=== PATIENT | female | born 1975 | race Caucasian/White ===

== ENCOUNTER 2021-03-17 11:45 | Emergency (ER) | payer MEDICAID ==
[~2021-03-17] VITALS: Ht 154.9 cm; Wt 64.9 kg
[2021-03-17 11:50] VITALS: BP 116/76
--- NOTE | 2021-03-17 12:00 | NUR ---
45 Y/O F BIB FRIEND FROM HOME, C/O EYE AND FACIAL SWELLING WITH HIVES, PT STATES SHE ATE CONGOLESE FOOD YESTERDAY THAT CAUSED HER TO HAVE HIVES, FACIAL EDEMA AND THROAT FELT IF IT WAS CLOSING. UNSURE OF WHAT MIGHT HAVE CAUSED ALLERGY. DENIES ANY PAIN. STATES "VERY ITCHY" MED: CITRACIN, BENADRYL 1000 TODAY ALLERGY: PENICILLIN (HIVES, EDEMA), UNKNOWN FOR FOOD PMH: ANEMIA
[2021-03-17] MEDS ORDERED: methylPREDNISolone SS 125 MG/2 ML VIAL ONE (12:11)
[2021-03-17] MEDS ORDERED: WATER STERILE 10 ML MC ONE (12:11)
[2021-03-17] MEDS: NACL 0.9% 1,000 ML IV ONE (12:27)
[2021-03-17] MEDS: methylPREDNISolone SS 125 MG in WATER STERILE 2 ML IV ONE (12:27)
[2021-03-17] MEDS: FAMOTIDINE 20 MG/2 ML VIAL IVP ONE (12:28)
[2021-03-17] MEDS: diphenhydrAMINE 50 MG/ML VIAL IVP ONE (12:28)
[2021-03-17] MEDS ORDERED: EPIN1KIT31 IM (12:54)
[2021-03-17] MEDS ORDERED: PRED20TA5 PO (12:54)
[2021-03-17 13:35] VITALS: BP 116/76
--- NOTE | 2021-03-17 13:35 | NUR ---
Patient discharged with v/s stable. Written and verbal after care instructions given and explained. Patient alert, oriented and verbalized understanding of instructions. Ambulatory with steady gait. All questions addressed prior to discharge. ID band removed. Patient advised to follow up with PMD. Rx of EPIPEN AND PREDNISONE given. Patient educated on indication of medication including possible reaction and side effects. Opportunity to ask questions provided and answered.
== END 2021-03-17 13:35 | disposition home or self-care (01) ==
LOC: MED 11:45
DX: T78.1XXA Other adverse food reactions, not elsewhere classified, initial encounter (principal); Z88.0 Allergy status to penicillin; X58.XXXA Exposure to other specified factors, initial encounter
CPT/HCPCS: 96361; 96374; 96375; 99291; J1200; J2930; J3490; J7030

== ENCOUNTER 2021-07-26 11:50 | Emergency (ER) | payer MEDICAID ==
[~2021-07-26] VITALS: Ht 152.4 cm; Wt 67.1 kg
[~2021-07-26 11:50] MED LIST: EPIN1KIT31 IM; PRED20TA5 PO
[2021-07-26 11:57] VITALS: BP 121/69
[2021-07-26] MEDS ORDERED: ROBAC PO (12:43)
[2021-07-26] MEDS ORDERED: AZIT250T4 PO (12:43)
--- NOTE | 2021-07-26 12:55 | NUR ---
NO NURSING INTERVENTIONS PERFORMED
--- NOTE | 2021-07-26 12:57 | NUR ---
Patient discharged with v/s stable. Written and verbal after care instructions given and explained. Patient alert, oriented and verbalized understanding of instructions. Ambulatory with steady gait. All questions addressed prior to discharge. ID band removed. Patient advised to follow up with PMD. Rx of Azithromycin, Guaifenesin-Codeine Syrup given. Patient educated on indication of medication including possible reaction and side effects. Opportunity to ask questions provided and answered.
== END 2021-07-26 12:57 | disposition home or self-care (01) ==
LOC: MED 11:50
DX: H66.92 Otitis media, unspecified, left ear (principal); J20.9 Acute bronchitis, unspecified; Z88.0 Allergy status to penicillin; Z79.899 Other long term (current) drug therapy
CPT/HCPCS: 71045; 93005; 99283

== ENCOUNTER 2022-02-25 17:19 | Emergency (ER) | payer MEDICAID ==
[~2022-02-25] VITALS: Ht 152.4 cm; Wt 68.5 kg
[~2022-02-25 17:19] MED LIST changes: +AZIT250T4 PO; +ROBAC PO
[2022-02-25 17:43] VITALS: BP 128/73
--- NOTE | 2022-02-25 18:05 | NUR ---
AMBULATED TO BED 7
--- NOTE | 2022-02-25 18:34 | NUR ---
46YO FEMALE PT C/O GENERALIZED WEAKNESS X7DAYS. PT REPORTS DIZZINESS , CHILLS, 7/10 HEADACHE W/ OCCASIONAL CHEST PALPITATIONS XLASTNIGHT . PT HAS HX OF ANEMIA AND HAS RX IRON, DENIES BEING COMPLIANT. DENIES N/V/D, NUMBING , LOSS OF SENSATION OR FEVER. PT AAOX4, RESPIRATIONS EVEN AND UNLABORED. PT ON [employer], BED AT LOWEST POSITION, BED RAIL UP X1. UKRAINIAN SPEAKING HX: ANEMIA ALLERGIES: PENICILLIN
--- NOTE | 2022-02-25 19:18 | NUR ---
REPORT GIVEN TO GEORGE MURILLO. ALL QUESTIONS ANSWERED. TRANSFER OF CARE AT THIS TIME
[2022-02-25 20:25] LABS: BASOPHILS % (AUTO) 0.1 % (0.0-2.0); EOSINOPHILS # (AUTO) 0.1 K/uL (0-0.4); EOSINOPHILS % (AUTO) 1.1 % (0.0-4.0); HEMOGLOBIN 11.9 g/dL (12.0-16.0); LYMPHOCYTES # (AUTO) 1.2 K/uL (2.5-16.5); LYMPHOCYTES % (AUTO) 12.2 % (20.5-51.1); MEAN CORPUSCULAR HEMOGLOBIN 27 pg (27-31); MEAN CORPUSCULAR HGB CONC 33 g/dL (33-37); MEAN CORPUSCULAR VOLUME 81.3 fL (80-94); MONOCYTES # (AUTO) 0.6 K/uL (0.8-1.0); MONOCYTES % (AUTO) 6.3 % (1.7-9.3); NEUTROPHILS # (AUTO) 7.9 K/uL (1.8-7.7); NEUTROPHILS % (AUTO) 80.3 % (42.2-75.2); PLATELET COUNT (AUTO) 300 K/uL (140-450); RED BLOOD CELL COUNT(AUTO) 4.43 MIL/uL (4.20-5.40); RED CELL DISTRIBUTION WIDTH 13.9 % (11.6-13.7); WHITE BLOOD COUNT (AUTO) 9.8 K/uL (4.8-10.8)
[2022-02-25 20:53] LABS: ALBUMIN 3.3 g/dL (3.4-5.0); ANION GAP 14.4 (8-16); ASPARTATE AMINOTRANSFERASE 15 U/L (15-37); CARBON DIOXIDE 26.2 mmol/L (21-32); CHLORIDE 103 mmol/L (98-107); CREATININE 0.7 mg/dL (0.6-1.3); GFR ARICAN-AMERICAN 116 mL/min (>90); GLUCOSE 141 mg/dL (74-106); POTASSIUM 3.6 mmol/L (3.5-5.1); SODIUM SERUM 140 mmol/L (136-145); THYROID STIMULATING HORMONE 0.76 uIU/mL (0.34-3.74); TOTAL BILIRUBIN 0.1 mg/dL (0.0-1.0); UREA NITROGEN, BLOOD 17 mg/dL (7-18)
--- NOTE | 2022-02-25 20:57 | NUR ---
EKG DONE AT BEDSIDE
--- NOTE | 2022-02-25 20:58 | NUR ---
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 HOB ELEVATED. RESP EVEN AND UNLABORED.
[2022-02-25] MEDS: ACETAMINOPHEN 325 MG TAB PO ONE (21:05)
--- NOTE | 2022-02-25 22:06 | NUR ---
46YR OLD FEMALE C/O BARROS DIZZY GEN WEAKNESS X1WEEK. 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 DENIES CP AND SOB. STATES SHE HAS BEEN HAVING PAPLPATIONS X1 WEEK. RESP EVEN AND UNLABORED. NO DISTRESS NOTED. HOB ELEVATED. BED AT LOWEST LEVEL. PT IS [place] SPEAKING PCN ANEMIA
[2022-02-25 22:19] VITALS: BP 120/74
--- NOTE | 2022-02-25 22:19 | NUR ---
Chart checked and completed.
--- NOTE | 2022-02-25 22:19 | NUR ---
Patient discharged with v/s stable. Written and verbal after care instructions given and explained. Patient verbalized understanding. Ambulatory with steady gait. All questions addressed prior to discharge. Advised to follow up with PMD.
== END 2022-02-25 22:19 | disposition home or self-care (01) ==
LOC: MED 17:19
DX: R53.1 Weakness (principal); R42 Dizziness and giddiness; D64.9 Anemia, unspecified; Z88.0 Allergy status to penicillin; Z79.899 Other long term (current) drug therapy
CPT/HCPCS: 36415; 71045; 80053; 81002; 81025; 84443; 84484; 85025; 93005; 99285

== ENCOUNTER 2022-11-27 12:12 | Emergency (ER) | payer OTHER ==
[~2022-11-27] VITALS: Ht 152.4 cm; Wt 67.1 kg
[2022-11-27 12:30] VITALS: BP 147/94
--- NOTE | 2022-11-27 16:28 | NUR ---
Patient discharged with v/s stable. Written and verbal after care instructions given and explained. Patient alert, oriented and verbalized understanding of instructions. Ambulatory with to home. All questions addressed prior to discharge. ID band removed. Patient advised to follow up with PMD. Rx of given. Patient educated on indication of medication including possible reaction and side effects. Opportunity to ask questions provided and answered.
== END 2022-11-27 16:26 | disposition home or self-care (01) ==
LOC: MED 12:12
DX: R05.9 Cough, unspecified (principal)
CPT/HCPCS: 71046; 99283